=== PATIENT | female | born 1985 | race Caucasian/White ===

== ENCOUNTER 2018-12-15 20:16 | Emergency (ER) | payer OTHER ==
[~2018-12-15] VITALS: Ht 172.7 cm; Wt 59.0 kg
[~2018-12-15 20:16] MED LIST: ALBU1.25 IH
--- NOTE | 2018-12-15 21:00 | NUR ---
Pt. ambulated into ED w/ c/o cough and wheezing x 2 days, frequent cough noted on traige, RR even and unlabored, VSS
--- NOTE | 2018-12-15 21:05 | NUR ---
at bedside for MSE
--- NOTE | 2018-12-15 21:13 | NUR ---
Pt. taken off unit via ambulation by Rad. tech. for CXR, steady gait observed,
[2018-12-15] MEDS ORDERED: IPRATROPIUM BROMIDE 0.5 MG/2.5 ML NEBU NEB ONE (21:15)
[2018-12-15] MEDS ORDERED: ALBUTEROL SULFATE 2.5 MG/3 ML NEBU NEB ONE (21:15)
[2018-12-15] MEDS ORDERED: predniSONE 20 MG TABLET PO ONE (21:15)
[2018-12-15] MEDS ORDERED: IPRATROPIUM BROMIDE 0.5 MG/2.5 ML NEBU ONE (21:20)
[2018-12-15] MEDS ORDERED: ALBUTEROL SULFATE 2.5 MG/3 ML NEBU ONE (21:20)
--- NOTE | 2018-12-15 21:20 | NUR ---
Pt. back from Rad. for CXR,
--- NOTE | 2018-12-15 21:31 | NUR ---
RT at bedside for breathing tx,
[2018-12-15] MEDS ORDERED: predniSONE 20 MG TABLET ONE (21:35)
--- NOTE | 2018-12-15 22:26 | NUR ---
Patient discharged to home in stable conditon. Written and verbal after care instructions given. Patient verbalizes understanding of instructions. Pt. d/c w/ prescription per MD order, d/c papers signed, all belongings w/ pt., ID band removed, ambulated off unit w/ steady gait accompanied by male wool cleaner, SUE,
== END 2018-12-15 22:29 | disposition home or self-care (01) ==
LOC: ER 20:19
DX: J45.909 Unspecified asthma, uncomplicated (principal); F12.10 Cannabis abuse, uncomplicated; Z79.899 Other long term (current) drug therapy
CPT/HCPCS: 71046; 94640; 99283; J7512; A4663; J3590

== ENCOUNTER 2019-09-13 09:51 | Emergency (ER) | payer OTHER ==
[~2019-09-13] VITALS: Ht 170.2 cm; Wt 61.2 kg
[2019-09-13] MEDS ORDERED: ALBUTEROL SULFATE 2.5 MG/3 ML NEBU ONE (10:13)
[2019-09-13] MEDS ORDERED: IPRATROPIUM BROMIDE 0.5 MG/2.5 ML NEBU ONE (10:13)
[2019-09-13] MEDS ORDERED: predniSONE 10 MG TABLET PO ONE (10:15)
[2019-09-13] MEDS ORDERED: ALBUTEROL SULFATE 2.5 MG/3 ML NEBU NEB ONE (10:15)
[2019-09-13] MEDS ORDERED: IPRATROPIUM BROMIDE 0.5 MG/2.5 ML NEBU NEB ONE (10:15)
[2019-09-13] MEDS ORDERED: predniSONE 50 MG TABLET ONE (10:21)
[2019-09-13] MEDS ORDERED: predniSONE 10 MG TABLET ONE (10:21)
--- NOTE | 2019-09-13 11:07 | NUR ---
Patient discharged to home in stable conditon. Written and verbal after care instructions given. Patient verbalizes understanding of instructions.pt feels better, no sob, ra sat 99%
[2019-09-13 11:08] VITALS: BP 106/71
== END 2019-09-13 11:09 | disposition home or self-care (01) ==
LOC: ER 09:54
DX: J45.901 Unspecified asthma with (acute) exacerbation (principal); F12.10 Cannabis abuse, uncomplicated; Z79.899 Other long term (current) drug therapy
CPT/HCPCS: 71045; 87400; 94640; 99284; J7512 ×2; A4663; J3590

== ENCOUNTER 2024-06-18 05:11 | Emergency (ER) | payer OTHER ==
[~2024-06-18] VITALS: Ht 170.2 cm; Wt 77.1 kg
[2024-06-18] MEDS ORDERED: ACETAMINOPHEN 500 MG TABLET ONE (06:07)
[2024-06-18] MEDS ORDERED: predniSONE 50 MG TABLET ONE (06:07)
[2024-06-18] MEDS: predniSONE 50 MG TABLET PO ONE (06:08)
[2024-06-18] MEDS: ACETAMINOPHEN 500 MG TABLET PO ONE (06:09)
[2024-06-18] MEDS ORDERED: CEPH500C2 PO (06:14)
[2024-06-18 06:20] VITALS: BP 116/85; TEMP 98.5; O2SAT 98
== END 2024-06-18 06:20 | disposition home or self-care (01) ==
LOC: ER 05:26
DX: J36 Peritonsillar abscess (principal); J45.909 Unspecified asthma, uncomplicated; Z79.899 Other long term (current) drug therapy; Z20.822 Contact with and (suspected) exposure to COVID-19
CPT/HCPCS: 99283; 87426; 87804 ×2; 86403; 87070; J7512; A4606; A4663; A9150

== ENCOUNTER 2024-12-25 10:58 | Emergency (ER) | payer OTHER ==
[~2024-12-25] VITALS: Ht 170.2 cm; Wt 77.1 kg
[~2024-12-25 10:58] MED LIST changes: +CEPH500C2 PO
[2024-12-25] MEDS ORDERED: AMOX-430 PO (12:50)
[2024-12-25] MEDS ORDERED: IBUP-1955 PO (12:50)
[2024-12-25 13:15] VITALS: BP 111/79; TEMP 98; O2SAT 99
== END 2024-12-25 13:16 | disposition home or self-care (01) ==
LOC: ER 10:58
DX: J02.9 Acute pharyngitis, unspecified (principal); R59.0 Localized enlarged lymph nodes
CPT/HCPCS: A4606; A4663